=== PATIENT | female | born 1985 | race African-American/Black ===

== ENCOUNTER 2017-09-28 17:25 | Emergency (ER) | payer SELFPAY ==
[2017-09-28] MEDS ORDERED: Ondansetron 4 MG/2 ML SDV IVPUSH ONE (17:43)
[2017-09-28] MEDS ORDERED: Sodium Chloride 0.9% 10 ML Syringe FLUSH PRN (17:43)
[2017-09-28] MEDS ORDERED: HYDROmorphone 0.5 MG/0.5 ML SYRINGE IVPUSH ONE (17:43)
--- NOTE | 2017-09-28 17:48 | EDM.PDOC ---
ED HPI GENERAL MEDICAL PROBLEM - General Chief Complaint: General Stated Complaint: SOB Time Seen by Provider: 09/28/17 17:37 Source of Information: Reports: Patient History Limitations: Reports: No Limitations, Language Barrier - History of Present Illness INITIAL COMMENTS - FREE TEXT/NARRATIVE: 32-year-old female arrives via private vehicle in moderate distress for evaluation and treatment of pain to the right anterior and lateral chest. She is having difficulty speaking and breathing due to the pain. States that the symptoms began suddenly. slight language barrier present. Given her Degree of distress and limit her will begin workup immediately. Right Upper Thoracic Pain Score (Numeric/FACES): 10 - Related Data Allergies Allergy/AdvReac Type Severity Reaction Status Date / Time No Known Allergies Allergy Verified 09/28/17 17:38 Home Meds: Home Meds Acetaminophen/oxyCODONE [Percocet 325-5 MG] 1 tab PO Q4HR PRN #20 tab 09/28/17 [ Rx] Ferrous Sulfate 325 mg PO TID #30 tablet 09/28/17 [Rx] Past Medical History - Past Health History Medical/Surgical History: Denies Medical/Surgical History - Past Surgical History Female Surgical History: Reports: Section Social & Family History - Tobacco Use Smoking Status *Q: Never Smoker Second Hand Smoke Exposure: No - Caffeine Use Caffeine Use: Reports: None - Recreational Drug Use Recreational Drug Use: No ED ROS GENERAL - Review of Systems Review Of Systems: See Below Constitutional: Denies: Fever, Chills Respiratory: Reports: Shortness of Breath Cardiovascular: Reports: Chest Pain (right frontal/lateral) GI/Abdominal: Reports: Nausea. Denies: Abdominal Pain, Hematemesis, Hematochezia, Melena, Vomiting ED EXAM, GENERAL - Physical Exam Exam: See Below Exam Limited By: Language Barrier General Appearance: Alert, WD/WN, Anxious, Moderate Distress Respiratory/Chest: Lungs Clear, Other (tachypnea) Cardiovascular: Normal Peripheral Pulses, Regular Rate, Rhythm, No Murmur Neurological: Alert, Oriented, Normal Cognition Psychiatric: Tearful Skin Exam: Warm, Normal Color, Diaphoretic EKG INTERPRETATION EKG Date: 09/28/17 Time: 17:55 Rhythm: NSR Rate (Beats/Min): 77 [place]: Normal P-Wave: Present QRS: Normal ST-T: Normal QT: Normal EKG Interpretation Comments: NSR at 77 bpm. No ischemic changes. No LAD. No LVH. No IVCDs. QTc within normal limits. Reviewed by myself and Dr. Martin. Course - Vital Signs Last Recorded V/S: Last Vital Signs Temp 98 F 09/28/17 17:35 Pulse 75 09/28/17 17:35 Resp 22 H 09/28/17 17:35 BP 117/72 09/28/17 17:35 Pulse Ox 100 09/28/17 17:35 - Orders/Labs/Meds Labs: Laboratory Tests 09/28/17 09/28/17 09/28/17 Range/Units 18:00 18:00 18:00 WBC 7.16 (3.98-10.04) K/mm3 RBC 5.19 (3.98-5.22) M/mm3 Hgb 8.9 L (11.2-15.7) gm/L Hct 28.4 L (34.1-44.9) % MCV 54.7 L (79.4-94.8) fl MCH 17.1 L (25.6-32.2) pg MCHC 31.3 L (32.2-35.5) g/dl RDW Std Deviation 38.6 (36.4-46.3) fL Plt Count 266 (182-369) K/mm3 Neutrophils % (Manual) 8 L (40-60) % Band Neutrophils % 0 (0-10) % Lymphocytes % (Manual) 19 L (20-40) % Atypical Lymphs % 0 % Monocytes % (Manual) 5 (2-10) % Eosinophils % (Manual) 1 (0.7-5.8) % Basophils % (Manual) 1 (0.1-1.2) Platelet Estimate Adequate Plt Morphology Comment Normal Polychromasia 1+ slight Hypochromasia Moderate Poikilocytosis Many Anisocytosis 1+ slight Microcytosis 1+ slight Macrocytosis 1+ slight Target Cells Moderate Ovalocytes 1+ slight RBC Morph Comment Abnormal D-Dimer, Quantitative 0.45 (0.19-0.50) mg/L Sodium 138 (136-145) mEq/L Potassium 3.8 (3.5-5.1) mEq/L Chloride 106 (98-107) mEq/L Carbon Dioxide 23 (21-32) mEq/L Anion Gap 12.8 (5-15) BUN 15 (7-18) mg/dL Creatinine 0.9 (0.55-1.02) mg/dL Est Cr Clr Drug Dosing 85.65 mL/min Estimated GFR (MDRD) > 60 (>60) mL/min BUN/Creatinine Ratio 16.7 (14-18) Glucose 106 (74-106) mg/dL Calcium 8.6 (8.5-10.1) mg/dL Iron (50-170) ug/dL TIBC (100-400) ug/dL % Saturation (20-55) % Transferrin (202-364) mg/dL Ferritin (8-252) ng/ml Total Bilirubin 0.1 L (0.2-1.0) mg/dL AST 20 (15-37) U/L ALT 23 (14-59) U/L Alkaline Phosphatase 91 (46-116) U/L Total Protein 7.1 (6.4-8.2) g/dl Albumin 3.4 (3.4-5.0) g/dl Globulin 3.7 gm/dL Albumin/Globulin Ratio 0.9 L (1-2) Lipase 130 (73-393) U/L // Range/Units 18:00 WBC (3.98-10.04) K/mm3 RBC (3.98-5.22) M/mm3 Hgb (11.2-15.7) gm/L Hct (34.1-44.9) % MCV (79.4-94.8) fl MCH (25.6-32.2) pg MCHC (32.2-35.5) g/dl RDW Std Deviation (36.4-46.3) fL Plt Count (182-369) K/mm3 Neutrophils % (Manual) (40-60) % Band Neutrophils % (0-10) % Lymphocytes % (Manual) (20-40) % Atypical Lymphs % % Monocytes % (Manual) (2-10) % Eosinophils % (Manual) (0.7-5.8) % Basophils % (Manual) (0.1-1.2) Platelet Estimate Plt Morphology Comment Polychromasia Hypochromasia Poikilocytosis Anisocytosis Microcytosis Macrocytosis Target Cells Ovalocytes RBC Morph Comment D-Dimer, Quantitative (0.19-0.50) mg/L Sodium (136-145) mEq/L Potassium (3.5-5.1) mEq/L Chloride (98-107) mEq/L Carbon Dioxide (21-32) mEq/L Anion Gap (5-15) BUN (7-18) mg/dL Creatinine (0.55-1.02) mg/dL Est Cr Clr Drug Dosing mL/min Estimated GFR (MDRD) (>60) mL/min BUN/Creatinine Ratio (14-18) Glucose (74-106) mg/dL Calcium (8.5-10.1) mg/dL Iron 12 L (50-170) ug/dL TIBC 363 (100-400) ug/dL % Saturation 3 L (20-55) % Transferrin 290 (202-364) mg/dL Ferritin 3 L (8-252) ng/ml Total Bilirubin (0.2-1.0) mg/dL AST (15-37) U/L ALT (14-59) U/L Alkaline Phosphatase (46-116) U/L Total Protein (6.4-8.2) g/dl Albumin (3.4-5.0) g/dl Globulin gm/dL Albumin/Globulin Ratio (1-2) Lipase (73-393) U/L Meds: Medications Discontinued Medications Generic Name Dose Route Start Last Admin Trade Name Freq PRN Reason Stop Dose Admin Hydromorphone HCl 0.5 mg 09/28/17 17:43 09/28/17 18:02 Dilaudid IVPUSH 09/28/17 17:44 0.5 mg ONETIME ONE Administration Ondansetron HCl 4 mg 09/28/17 17:43 09/28/17 18:02 Zofran IVPUSH 09/28/17 17:44 4 mg ONETIME ONE Administration Sodium Chloride 10 ml 09/28/17 17:43 09/28/17 18:02 Saline Flush FLUSH 10 ml ASDIRECTED PRN Administration Keep Vein Open - Radiology Interpretation Free Text/Narrative:: us of the abdomen ltd impression per vrad: cholelithiasis. - Re-Assessments/Exams Free Text/Narrative Re-Assessment/Exam: 09/28/17 19:03 I reviewed the labs, EKG and imaging with the patient. She is resting much more comfortably at this time. she denies any recent trauma such as motor vehicle accidents or falls. She does not know if she has been anemic in the past. Patient then tells me that she's had this exact same pain in the past. She was seen in [facility]. She had an ultrasound done which showed gallstones. She has not seen a surgeon in follow-up. Reports this is the same pain she is experiencing today. She states that she did eat some fattier foods earlier including sausage, pancakes and some beans and rice. Last intake was around 1400. 09/28/17 21:11 I reviewed the ultrasound report with the patient. She continues to be resting comfortably and is pain-free at this time. I do feels likely her gallbladder that causing her pain. Again she states that she had this in the past. I will defer to surgery to have her gallbladder removed. I also referred her to family medicine to further investigate this anemia. She again reiterates that she has not had any recent trauma including no falls, motor vehicle accidents etc. She denies any blood in her stool or any hematemesis. We'll start her on some iron for her an and for some pain pills for the gallbladder. Discharge instructions documented. Departure - Departure Time of Disposition: 21:12 Disposition: Home, Self-Care 01 Condition: Fair Clinical Impression: Anemia, Cholelithiasis - Discharge Information Prescriptions: Acetaminophen/oxyCODONE [Percocet 325-5 MG] 1 tab PO Q4HR PRN #20 tab PRN Reason: Pain Ferrous Sulfate 325 mg PO TID #30 tablet Instructions: Anemia, Cholelithiasis, [id number] Referrals: Gloria Garay PA-C [Primary Care Provider] - Elmer Berg MD [Physician] - Forms: ED Department Discharge, ED Return to Work/School Form Additional Instructions: Follow-up with family medicine for further evaluation of your anemia. Recommend Rachel Garay or Dr. Roach at the [facility], call [phone] to schedule with her. In the meantime start iron supplementation 3x day. Take with such as fruits such as oranges to help absorb the iron. Follow up with surgery to discuss having her gallbladder out. Recommend Dr. Berg at the [facility]. Call [phone] to schedule with him. You were given medication the ER that can affect her ability to drive and operate machinery. Do not drive or operate machinery within 12 hours of taking perception narcotic pain medication. Percocet 1-2 tabs every 4-6 hours as needed for severe pain. Percocet as habit- forming, take as few of these as needed to control your pain. Do not drive or operate machinery within 12 hours taking Percocet. Please return to the ER if your symptoms change or worsen.
--- NOTE | 2017-09-29 07:03 | US ---
Limited abdominal ultrasound: Multiple real-time images of the upper right abdomen were obtained. Comparison: No previous study. Liver shows no focal abnormality. Shadowing gallstone seen within the gallbladder neck measuring approximately 2.1 cm. Gallbladder sludge is also identified. No gallbladder wall thickening is seen. No biliary duct dilatation is seen. Pancreas is poorly seen due to bowel gas. Right kidney shows no hydronephrosis or mass. Right kidney has a length of 12.4 cm. Portal vein shows normal hepatopedal flow. Impression: 1. Single large gallstone within the gallbladder neck. Gallbladder sludge is also seen. No gallbladder wall thickening or biliary duct dilatation is seen. 2. Nonvisualized pancreas with no additional abnormality being seen on right upper quadrant ultrasound. Diagnostic code #3 I agree with preliminary report from [facility], finalized at 09/28/17, 9:24 PM Central Time
--- NOTE | 2017-09-29 07:03 | CR ---
Chest: Two views of the chest are obtained. Comparison: No prior chest x-ray. Heart size is slightly prominent. Upper mediastinum is normal. Lungs are clear. Bony structures are unremarkable. Impression: 1. Heart size is slightly prominent. 2. Nothing acute is otherwise seen on two-view chest x-ray. Diagnostic code #3
== END 2017-09-28 21:37 | disposition home or self-care (01) ==
LOC: JD.ED 17:25
DX: K80.20 Calculus of gallbladder without cholecystitis without obstruction (principal); D64.9 Anemia, unspecified; Z79.899 Other long term (current) drug therapy
CPT/HCPCS: 36415; 71046; 76705; 80053; 82728; 83540; 83690; 84466; 85007; 85027; 85379; 93005; 96374; 96375; 99284; J1170; J2405; J7050

== ENCOUNTER 2020-03-21 02:01 | Emergency (ER) | payer BC ==
[2020-03-21] MEDS ORDERED: Ondansetron 4 MG/2 ML SDV IVPUSH ONE (02:32)
[2020-03-21] MEDS ORDERED: Sodium Chloride 0.9% 1,000 ML IV STA (02:32)
[2020-03-21] MEDS ORDERED: Sodium Chloride 0.9% 10 ML Syringe FLUSH PRN (02:32)
[2020-03-21] MEDS ORDERED: HYDROmorphone 1 MG/ML Syringe IVPUSH ONE (02:32)
--- NOTE | 2020-03-21 03:44 | EDM.PDOC ---
ED HPI GENERAL MEDICAL PROBLEM - General Chief Complaint: Abdominal Pain Stated Complaint: COVID+ GALLBLADDER PAIN DRANK SOME MEDS?? Time Seen by Provider: 03/21/20 02:26 Source of Information: Reports: Patient History Limitations: Reports: No Limitations - History of Present Illness INITIAL COMMENTS - FREE TEXT/NARRATIVE: The patient presents with RUQ abdominal pain. This started tonight. She drank an elixer her friend said to take. It had zach some other herbs and alcohol. Right after taking this she started to have pain. She has nausea but no vomiting. She has known gallbladder disease and she is scheduled to have her gallbladder removed in [place] in a couple of week. She was recently diagnosed with COVID 19 but she has no signs or symptoms for that. She has no fever, chills, cough or shortness of breath. Onset: Sudden Duration: Minutes: Location: Reports: Abdomen Quality: Reports: Sharp Severity: Severe Improves with: Reports: None Worsens with: Reports: None Associated Symptoms: Reports: Nausea/Vomiting. Denies: Chest Pain, Cough, Fever/Chills, Headaches, Shortness of Breath Right Upper Abdominal Pain Score (Numeric/FACES): 10 - Related Data Allergies Allergy/AdvReac Type Severity Reaction Status Date / Time No Known Allergies Allergy Verified 03/21/20 02:22 Home Meds: Home Meds Acetaminophen/oxyCODONE [Percocet 325-5 MG] 1 tab PO Q4HR PRN #20 tab 09/28/17 [Rx] Ferrous Sulfate 325 mg PO TID #30 tablet 09/28/17 [Rx] Past Medical History - Past Health History Medical/Surgical History: Denies Medical/Surgical History - Infectious Disease History Infectious Disease History: Reports: Novel Coronavirus - Past Surgical History Female Surgical History: Reports: Section Social & Family History - Tobacco Use Tobacco Use Status *Q: Never Tobacco User - Caffeine Use Caffeine Use: Reports: None - Recreational Drug Use Recreational Drug Use: No ED ROS GENERAL - Review of Systems Review Of Systems: See Below Constitutional: Reports: No Symptoms HEENT: Reports: No Symptoms Respiratory: Reports: No Symptoms Cardiovascular: Reports: No Symptoms Endocrine: Reports: No Symptoms GI/Abdominal: Reports: Abdominal Pain, Nausea. Denies: Diarrhea, Vomiting : Reports: No Symptoms Musculoskeletal: Reports: No Symptoms Skin: Reports: No Symptoms ED EXAM, GI/ABD - Physical Exam Exam: See Below Exam Limited By: No Limitations General Appearance: Alert, No Apparent Distress Ears: Normal External Exam Nose: Normal Inspection Head: Atraumatic, Normocephalic Neck: Normal Inspection Respiratory/Chest: No Respiratory Distress, Lungs Clear, Normal Breath Sounds Cardiovascular: Regular Rate, Rhythm, No Edema, No Murmur GI/Abdominal Exam: Soft, No Organomegaly, No Mass, Tender (Moderate RUQ abdominal pain) Course - Vital Signs Last Recorded V/S: Last Vital Signs Temp 97.0 F 03/21/20 02:17 Pulse 103 H 03/21/20 03:17 Resp 16 03/21/20 02:17 BP 133/90 03/21/20 02:17 Pulse Ox 94 L 03/21/20 03:17 - Orders/Labs/Meds Orders: Active Orders 24 hr Category Date Time Status Peripheral IV Care [RC] . DIRECTED Care 03/21/20 02:32 Active CBC WITH AUTO DIFF [HEME] Stat Lab 03/21/20 02:55 Results Sodium Chloride 0.9% [Saline Flush] Med 03/21/20 02:32 Active 10 ml FLUSH ASDIRECTED PRN ED Antiemetic Medication Reflex [OM.PC] Stat Oth 03/21/20 02:32 Ordered Peripheral IV Insertion Adult [OM.PC] Stat Oth 03/21/20 02:32 Ordered Medication Orders Sodium Chloride (Saline Flush) 10 ml FLUSH ASDIRECTED PRN PRN Reason: Keep Vein Open Last Admin: 03/21/20 02:58 Dose: 10 ml Documented by: MIESHA Labs: Laboratory Tests 03/21/20 03/21/20 Range/Units 02:55 02:55 WBC 9.21 (3.98-10.04) K/mm3 RBC 5.53 H (3.98-5.22) M/mm3 Hgb 12.2 (11.2-15.7) gm/dl Hct 36.7 (34.1-44.9) % MCV 66.4 L (79.4-94.8) fl MCH 22.1 L (25.6-32.2) pg MCHC 33.2 (32.2-35.5) g/dl RDW Std Deviation 42.0 (36.4-46.3) fL Plt Count 179 L (182-369) K/mm3 Neut % (Auto) 83.8 H (34.0-71.1) % Lymph % (Auto) 11.6 L (19.3-51.7) % Yell % (Auto) 4.3 L (4.7-12.5) % Eos % (Auto) 0.1 L (0.7-5.8) Baso % (Auto) 0.2 (0.1-1.2) % Neut # (Auto) 7.71 H (1.56-6.13) K/mm3 Lymph # (Auto) 1.07 L (1.18-3.74) K/mm3 Yell # (Auto) 0.40 H (0.24-0.36) K/mm3 Eos # (Auto) 0.01 L (0.04-0.36) K/mm3 Baso # (Auto) 0.02 (0.01-0.08) K/mm3 Sodium 136 (136-145) mEq/L Potassium 3.8 (3.5-5.1) mEq/L Chloride 102 (98-107) mEq/L Carbon Dioxide 27 (21-32) mEq/L Anion Gap 10.8 (5-15) BUN 11 (7-18) mg/dL Creatinine 0.8 (0.55-1.02) mg/dL Est Cr Clr Drug Dosing 80.42 mL/min Estimated GFR (MDRD) > 60 (>60) mL/min BUN/Creatinine Ratio 13.8 L (14-18) Glucose 118 H (74-106) mg/dL Calcium 9.1 (8.5-10.1) mg/dL Total Bilirubin 0.3 (0.2-1.0) mg/dL AST 27 (15-37) U/L ALT 62 H (14-59) U/L Alkaline Phosphatase 67 (46-116) U/L Total Protein 7.5 (6.4-8.2) g/dl Albumin 3.6 (3.4-5.0) g/dl Globulin 3.9 gm/dL Albumin/Globulin Ratio 0.9 L (1-2) Lipase 64 L (73-393) U/L Meds: Medications Generic Name Dose Route Start Last Admin Trade Name Freq PRN Reason Stop Dose Admin Sodium Chloride 10 ml 03/21/20 02:32 03/21/20 02:58 Saline Flush FLUSH 10 ml ASDIRECTED PRN Administration Keep Vein Open Discontinued Medications Generic Name Dose Route Start Last Admin Trade Name Cinthia PRN Reason Stop Dose Admin Hydromorphone HCl 1 mg 03/21/20 02:32 03/21/20 02:58 Dilaudid IVPUSH 03/21/20 02:33 1 mg ONETIME ONE Administration Sodium Chloride 1,000 mls @ 1,000 mls/hr 03/21/20 02:32 03/21/20 02:58 Normal Saline IV 03/21/20 03:31 1,000 mls/hr .BOLUS STA Administration Ondansetron HCl 4 mg 03/21/20 02:32 03/21/20 02:58 Zofran IVPUSH 03/21/20 02:33 4 mg ONETIME ONE Administration - Re-Assessments/Exams Free Text/Narrative Re-Assessment/Exam: 03/21/20 03:44 I ordered an IV NS 1L bolus, zofran 4mg IV, dilaudid 1mg IV, and labs. 03/21/20 03:47 Her CBC and CMP look good. Her lipase is low. She feels much better. I will give her some hydrocodone if the pain returns. Departure - Departure Time of Disposition: 03:50 Disposition: Home, Self-Care 01 Condition: Good Clinical Impression: Biliary colic Abdominal pain Qualifiers: Abdominal location: right upper quadrant Qualified Code(s): R10.11 - Right upper quadrant pain - Discharge Information Forms: ED Department Discharge Additional Instructions: Avoid all fried, fatty foods. Avoid the elixir you took tonight. Take tylenol or motrin for pain. If that does not help, try hydrocodone. Follow up with your doctor. Please return if you are worse. Sepsis Event Note (ED) - Evaluation Sepsis Screening Result: No Definite Risk - Focused Exam Vital Signs: Vital Signs Temp Pulse Resp BP Pulse Ox 03/21/20 03:17 103 H 94 L 03/21/20 02:17 97.0 F 79 16 133/90 100 - My Orders Last 24 Hours: My Active Orders 03/21/20 02:32 Peripheral IV Care [RC] . DIRECTED Sodium Chloride 0.9% [Saline Flush] 10 ml FLUSH ASDIRECTED PRN ED Antiemetic Medication Reflex [OM.PC] Stat Peripheral IV Insertion Adult [OM.PC] Stat 03/21/20 02:55 CBC WITH AUTO DIFF [HEME] Stat - Assessment/Plan Last 24 Hours: My Active Orders 03/21/20 02:32 Peripheral IV Care [RC] . DIRECTED Sodium Chloride 0.9% [Saline Flush] 10 ml FLUSH ASDIRECTED PRN ED Antiemetic Medication Reflex [OM.PC] Stat Peripheral IV Insertion Adult [OM.PC] Stat 03/21/20 02:55 CBC WITH AUTO DIFF [HEME] Stat
== END 2020-03-21 04:08 | disposition home or self-care (01) ==
LOC: JD.ED 02:01
DX: K80.50 Calculus of bile duct without cholangitis or cholecystitis without obstruction (principal)
CPT/HCPCS: 36415; 80053; 83690; 85025; 96374; 96375; 99284; J1170; J2405; J7030